=== PATIENT | male | born 1940 | race Caucasian/White ===

== ENCOUNTER → 2018-03-04 | Outpatient (CLI) | payer OTHER, MEDICARE ==
--- NOTE | 2018-03-04 10:15 | DIAGNOSTIC IMAGING REPORT ---
L ELBOW MIN 3 VIEWS CLINICAL HISTORY: LEFT ELBOW PAIN pain COMPARISON: None. DISCUSSION: The bones and joint spaces appear intact. There is no evidence of fracture, dislocation or bony disease. There is no evidence for soft tissue swelling. IMPRESSION: Negative study. The above report was generated using voice recognition software. It may contain grammatical, syntax or spelling errors. Electronically signed by: Benoit Stapleton M.D. 03/04/2018 10:14 AM Dictated Date/Time: 03/04/2018 10:11 AM
== END | disposition home or self-care (01) ==
LOC: C.RDSM 14:37
PROVIDERS: ATTEND Physician Assistant
DX: M79.602 Pain in left arm (principal)